=== PATIENT | male | born 1990 | race Caucasian/White ===

== ENCOUNTER 2020-03-18 21:24 | Emergency (ER) | payer OTHER ==
[2020-03-18] MEDS ORDERED: KETOROLAC 15 MG/ML 1 ML VIAL IM STA (21:42)
--- NOTE | 2020-03-18 21:44 | ED ---
General Adult HPI - General Chief complaint: Back Pain/Injury Stated complaint: Back Pain Time Seen by Provider: 03/18/20 21:32 Source: patient, RN notes reviewed Mode of arrival: ambulatory Limitations: no limitations - History of Present Illness Initial comments: 29-year-old male presents to the emergency room for a chief complaint of upper back pain. Patient reports that he was moving a large bench seat out of a 15 passenger van. States that a few minutes later he was walking across the yard carrying hamburgers when he started to have sudden mid back pain. States it hurts to straighten his spine. States it hurts to lift his right shoulder. States twisting to the left increases the pain accidentally. Denies bladder or bowel changes. Denies numbness or tingling of upper or lower extremities. Denies fevers or chills.Patient has no other complaints at this time including shortness of breath, chest pain, abdominal pain, nausea or vomiting, headache, or visual changes. - Related Data Allergies Allergy/AdvReac Type Severity Reaction Status Date / Time No Known Allergies Allergy Verified 03/18/20 21:30 Review of Systems ROS Statement: Those systems with pertinent positive or pertinent negative responses have been documented in the HPI. ROS Other: All systems not noted in ROS Statement are negative. Past Medical History Past Medical History: No Reported History History of Any Multi-Drug Resistant Organisms: None Reported Past Surgical History: No Surgical Hx Reported Past Psychological History: No Psychological Hx Reported Smoking Status: Never smoker Past Alcohol Use History: None Reported Past Drug Use History: None Reported General Exam Limitations: no limitations General appearance: alert, in no apparent distress Head exam: Present: atraumatic, normocephalic, normal inspection Eye exam: Present: normal appearance, PERRL, EOMI. Absent: scleral icterus, conjunctival injection, periorbital swelling ENT exam: Present: normal exam, mucous membranes moist Neck exam: Present: normal inspection, full ROM. Absent: tenderness, meningismus, lymphadenopathy Respiratory exam: Present: normal lung sounds bilaterally. Absent: respiratory distress, wheezes, rales, rhonchi, stridor Cardiovascular Exam: Present: regular rate, normal rhythm, normal heart sounds. Absent: systolic murmur, diastolic murmur, rubs, gallop, clicks GI/Abdominal exam: Present: soft, normal bowel sounds. Absent: distended, tenderness, guarding, rebound, rigid Extremities exam: Present: other (strength 5 out of 5 and sensation intact in upper and lower extremities bilaterally. radial pulses 2+ bilat) Back exam: Present: paraspinal tenderness (thoracic paraspinal tenderness.), vertebral tenderness (thoracic spine tenderness along the T8-T10 area). Absent: CVA tenderness (R), CVA tenderness (L) Course Vital Signs 03/18/20 21:25 Temperature 99.5 F Pulse Rate 83 Respiratory 16 Rate Blood Pressure 143/97 O2 Sat by Pulse 97 Oximetry Medical Decision Making - Medical Decision Making pain is reproducible, most notable nature. X-rays are negative. Patient was treated with anti-inflammatories and pain medication. He will follow up with primary care. Will return for any worsening symptoms. Disposition Clinical Impression: Mechanical back pain Disposition: HOME SELF-CARE Condition: Good Instructions (If sedation given, give patient instructions): Back Pain (ED) Additional Instructions: please take Motrin and Tylenol alternating every 3 hours for pain. Take Tylenol 3 if pain is severe but do not drive or operate machinery while taking this. Do not take more than 1000 mg of Tylenol in 6 hours. Follow-up with primary care in 1-2 days. Return to the emergency room for any worsening symptoms. Is patient prescribed a controlled substance at d/c from ED?: No Referrals: Pema Mcconnell MD [REFERRING] - 1-2 days Time of Disposition: 22:34
--- NOTE | 2020-03-18 21:59 | XR ---
EXAMINATION TYPE: XR chest 2V DATE OF EXAM: 03/18/2020 COMPARISON: NONE HISTORY: Chest pain TECHNIQUE: 2 views FINDINGS: Heart and mediastinum are normal. Lungs are clear. Diaphragm is normal. Bony thorax appears normal. IMPRESSION: Normal chest.
--- NOTE | 2020-03-18 22:04 | XR ---
EXAMINATION TYPE: XR thoracic spine complete DATE OF EXAM: 03/18/2020 COMPARISON: NONE HISTORY: Pain TECHNIQUE: 3 views FINDINGS: There is a mid thoracic dextroscoliosis. There is no thoracic paraspinal mass. I see no com pression fracture. Posterior elements are intact. There is no evidence of focal bone destruction. IMPRESSION: Mild dextroscoliosis. No fracture seen.
[2020-03-18] MEDS ORDERED: ACET/COD 300 MG/30 MG STARTER PACK 6 TAB BTL PO STA (22:34)
[2020-03-18 22:50] VITALS: BP 131/85; PULSE 76; RESP 18; TEMP 98.8
== END 2020-03-18 22:52 | disposition home or self-care (01) ==
LOC: EC 21:24
DX: M54.6 Pain in thoracic spine (principal); M25.511 Pain in right shoulder
CPT/HCPCS: 72072; 71046; 96372; 99283; J1885

== ENCOUNTER 2022-06-11 00:14 | Emergency (ER) | payer OTHER ==
[2022-06-11 00:49] VITALS: BP 158/94; PULSE 86; RESP 16; TEMP 100.8
[2022-06-11] MEDS ORDERED: DEXAMETHASONE SOD PHOSPHATE 10 MG/ML 1 ML VIAL IM STA (00:56)
[2022-06-11] MEDS ORDERED: PROCHLORPERAZINE 10 MG TAB PO STA (00:56)
[2022-06-11] MEDS ORDERED: IBUPROFEN 800 MG TAB PO STA (00:56)
[2022-06-11] MEDS ORDERED: ACETAMINOPHEN TAB 500 MG TAB PO STA (00:56)
--- NOTE | 2022-06-11 00:57 | ED ---
Dizziness HPI - General Chief Complaint: Upper Respiratory Infection Stated Complaint: headache,sob Time Seen by Provider: 06/11/22 00:21 Source: patient, RN notes reviewed, old records reviewed Mode of arrival: ambulatory Limitations: no limitations - History of Present Illness Initial Comments: This is a 32-year-old male to the emergency department for evaluation. Patient is expecting a coronavirus test. Patient states he been exposed to covert is having covert in the past body aches pains cough or congestion no shortness of breath no specific complaints. Patient is no travel history no chest pain no significant shortness of breath patient has no medical history takes no medications MD Complaint: dizziness, lightheadedness, other (GARCIA, sob) Timing: gradual onset Description: off-balance, nausea, near-syncope History of Same: No History of Trauma: No Severity: moderate Improves With: remaining still Worsens With: nothing Associated Symptoms: denies other symptoms - Related Data Allergies Allergy/AdvReac Type Severity Reaction Status Date / Time No Known Allergies Allergy Verified 03/18/20 21:30 Review of Systems ROS Statement: Those systems with pertinent positive or pertinent negative responses have been documented in the HPI. ROS Other: All systems not noted in ROS Statement are negative. Past Medical History Past Medical History: No Reported History History of Any Multi-Drug Resistant Organisms: None Reported Past Surgical History: No Surgical Hx Reported Past Psychological History: No Psychological Hx Reported Smoking Status: Never smoker Past Alcohol Use History: None Reported Past Drug Use History: None Reported General Exam Limitations: no limitations General appearance: alert, in no apparent distress, anxious Head exam: Present: atraumatic, normocephalic, normal inspection Eye exam: Present: normal appearance, PERRL, EOMI. Absent: scleral icterus, conjunctival injection, periorbital swelling ENT exam: Present: normal exam, mucous membranes moist Neck exam: Present: normal inspection. Absent: tenderness, meningismus, lymphadenopathy Respiratory exam: Present: normal lung sounds bilaterally. Absent: respiratory distress, wheezes, rales, rhonchi, stridor Cardiovascular Exam: Present: regular rate, normal rhythm, normal heart sounds. Absent: systolic murmur, diastolic murmur, rubs, gallop, clicks GI/Abdominal exam: Present: soft, normal bowel sounds. Absent: distended, tenderness, guarding, rebound, rigid Extremities exam: Present: normal inspection, full ROM, normal capillary refill. Absent: tenderness, pedal edema, joint swelling, calf tenderness Back exam: Present: normal inspection Neurological exam: Present: alert, oriented X3, CN II-XII intact Psychiatric exam: Present: normal affect, normal mood Skin exam: Present: warm, dry, intact, normal color. Absent: rash Course Vital Signs 06/11/22 00:46 Temperature 100.8 F H Pulse Rate 86 Respiratory 16 Rate Blood Pressure 158/94 O2 Sat by Pulse 100 Oximetry - Reevaluation(s) Reevaluation #1: 06/11/22 Medical record is reviewed Patient symptoms are improved here in the ER Patient informed results and questions answered Medical Decision Making - Medical Decision Making 32 male to the emergency department for fever and evaluation. Patient has no acute cause found found for symptoms, breast for infection patient can be discharged home - Lab Data Lab Results 06/11/22 Range/Units 00:46 Coronavirus (PCR) Not Detected (Not Detectd) Disposition Clinical Impression: Acute upper respiratory infection, Fever, Viral infection Disposition: HOME SELF-CARE Condition: Good Instructions (If sedation given, give patient instructions): Fever in Adults (ED), Upper Respiratory Infection (ED) Is patient prescribed a controlled substance at d/c from ED?: No Referrals: None,Stated [Primary Care Provider] - 1-2 days Time of Disposition: 02:00
== END 2022-06-11 02:20 | disposition home or self-care (01) ==
LOC: EC 00:14
DX: J06.9 Acute upper respiratory infection, unspecified (principal); Z20.822 Contact with and (suspected) exposure to COVID-19
CPT/HCPCS: 87635; 99284; 96372; S0183; J1100

== ENCOUNTER 2024-01-14 16:14 | Emergency (ER) | payer OTHER ==
[2024-01-14 16:32] VITALS: TEMP 98.9
--- NOTE | 2024-01-14 16:50 | ED ---
Extremity Problem HPI - General Chief complaint: Extremity Problem,Nontraumatic Stated complaint: sent by kasia HUBER blood clot Time Seen by Provider: 01/14/24 16:31 Source: patient, RN notes reviewed Mode of arrival: ambulatory Limitations: no limitations - History of Present Illness Initial comments: This is a 33-year-old male with no significant past medical history presents the emergency department chief complaint of pain of his right lower calf over the past few days. Patient states that he was seen at urgent care this afternoon where they instructed him to report to the emergency department for further evaluation and to rule out a blood clot. Patient denies history of DVT, PE. Is not on blood thinners. He is denying dyspnea, heart palpitations, headaches. Denies recent prolonged travel or recent surgeries. Patient has mild pain of the right calf with ambulation. - Related Data Allergies Allergy/AdvReac Type Severity Reaction Status Date / Time No Known Allergies Allergy Verified 01/14/24 16:32 Review of Systems ROS Statement: Those systems with pertinent positive or pertinent negative responses have been documented in the HPI. ROS Other: All systems not noted in ROS Statement are negative. Past Medical History Past Medical History: No Reported History History of Any Multi-Drug Resistant Organisms: None Reported Past Surgical History: No Surgical Hx Reported Past Psychological History: No Psychological Hx Reported Smoking Status: Never smoker Past Alcohol Use History: None Reported Past Drug Use History: None Reported General Exam Limitations: no limitations General appearance: alert, in no apparent distress Head exam: Present: atraumatic, normocephalic, normal inspection Eye exam: Present: normal appearance, PERRL, EOMI. Absent: scleral icterus, conjunctival injection, periorbital swelling ENT exam: Present: normal exam, mucous membranes moist Neck exam: Present: normal inspection. Absent: tenderness, meningismus, lymphadenopathy Respiratory exam: Present: normal lung sounds bilaterally. Absent: respiratory distress, wheezes, rales, rhonchi, stridor Cardiovascular Exam: Present: regular rate, normal rhythm, normal heart sounds. Absent: systolic murmur, diastolic murmur, rubs, gallop, clicks GI/Abdominal exam: Present: soft, normal bowel sounds. Absent: distended, tenderness, guarding, rebound, rigid Right Lower Leg exam: Present: tenderness, swelling (Exterior). Absent: laceration, ecchymosis, deformity, crepitus, erythema, palpable cord, Homans' sign Neurovascular tendon exam: Present: no vascular compromise. Absent: pulse deficit Gait: observed and normal. negative: unable to bear weight Back exam: Present: normal inspection Neurological exam: Present: alert, oriented X3, CN II-XII intact Skin exam: Present: warm, dry, intact, normal color. Absent: rash Course Vital Signs 01/14/24 01/14/24 16:29 18:15 Temperature 98.9 F Pulse Rate 86 74 Respiratory 17 18 Rate Blood Pressure 150/98 130/84 O2 Sat by Pulse 96 98 Oximetry Medical Decision Making - Medical Decision Making Was pt. sent in by a medical professional or institution (, PA, SERVICE OBSERVER, urgent care, hospital, or correction...) When possible be specific @ -Patient was referred by urgent care report to the emergency department to rule out a DVT of the right lower extremity. Did you speak to anyone other than the patient for history (EMS, parent, family, police, friend...)? What history was obtained from this source @ -No Did you review nursing and triage notes (agree or disagree)? Why? @ -I reviewed and agree with nursing and triage notes Were old charts reviewed (outside hosp., previous admission, EMS record, old EKG, old radiological studies, urgent care reports/EKG's, correction records)? Report findings @ -No old charts were reviewed Differential Diagnosis (chest pain, altered mental status, abdominal pain women, abdominal pain men, vaginal bleeding, weakness, fever, dyspnea, syncope, headache, dizziness, GI bleed, back pain, seizure, CVA, palpatations, mental health, musculoskeletal)? @ -Deep vein thrombosis, superficial thrombosis, muscle strain, edema, this list is not all inclusive. EKG interpreted by me (3pts min.). @ -None X-rays interpreted by me (1pt min.). @ -None done CT interpreted by me (1pt min.). @ -None done U/S interpreted by me (1pt. min.). @ -duplex ultrasound of the right lower extremity no evidence for DVT. What testing was considered but not performed or refused? (CT, X-rays, U/S, labs)? Why? @ -None What meds were considered but not given or refused? Why? @ -None Did you discuss the management of the patient with other professionals (professionals i.e. , PA, SERVICE OBSERVER, lab, RT, psych nurse, social media assistant, hot dip plating supervisor, teacher, community resource officer, rn field case manager)? Give summary @ -No Was smoking cessation discussed for >3mins.? @ -No Was critical care preformed (if so, how long)? @ -No Were there social determinants of health that impacted care today? How? (Homelessness, low income, unemployed, alcoholism, drug addiction, transportation, low edu. Level, literacy, decrease access to med. care, halfway, rehab)? @ -No Was there de-escalation of care discussed even if they declined (Discuss DNR or withdrawal of care, Hospice)? DNR status @ -No What co-morbidities impacted this encounter? (DM, HTN, Smoking, COPD, CAD, Cancer, CVA, ARF, Chemo, Hep., AIDS, mental health diagnosis, sleep apnea, morbid obesity)? @ -None Was patient admitted / discharged? Hospital course, mention meds given and route, prescriptions, significant lab abnormalities, going to OR and other pertinent info. @ -Discharged. 33-year-old male with right lower extremity edema and pain. On examination patient has a negative Homans' sign. There is no erythema of the right lower extremity. Patient is able to bear weight solely on the right lower extremity. He is evaluated via duplex ultrasound which is negative. Recommend the patient use compression stockings for the next few days in addition to Tylenol Motrin at home as needed for symptomatic relief. She is not expressing symptoms concerning for PE such as shortness of breath, dyspnea on exertion, heart palpitations therefore laboratory studies were deferred. All questions answered at bedside and strict return parameters discussed with the patient he is verbalized understanding. Case discussed with Dr. Nix. Undiagnosed new problem with uncertain prognosis? @ -No Drug Therapy requiring intensive monitoring for toxicity (Heparin, Nitro, Insulin, Cardizem)? @ -No Were any procedures done? @ -No Diagnosis/symptom? @ -Right calf pain, muscle strain Acute, or Chronic, or Acute on Chronic? @ -acute Uncomplicated (without systemic symptoms) or Complicated (systemic symptoms)? @ -Uncomplicated Side effects of treatment? @ -No Exacerbation, Progression, or Severe Exacerbation? @ -No Poses a threat to life or bodily function? How? (Chest pain, [place], [place], pneumonia, PE, COPD, DKA, ARF, appy, cholecystitis, CVA, Diverticulitis, Homicidal, Suicidal, threat to staff... and all critical care pts) @ -No Disposition Clinical Impression: Pain of right calf, Right leg swelling Disposition: HOME SELF-CARE Condition: Good Instructions (If sedation given, give patient instructions): Muscle Strain (ED) Additional Instructions: Return to the emergency department if symptoms worsen or not improve. Recommend that you use compression stockings while ambulating over the next week. Take Tylenol Motrin at home as needed. Is patient prescribed a controlled substance at d/c from ED?: No Referrals: Sarmad Henriquez DO [Primary Care Provider] - 1-2 days Time of Disposition: 17:46
--- NOTE | 2024-01-14 17:35 | US ---
EXAMINATION TYPE: US venous doppler duplex LE RT DATE OF EXAM: 01/14/2024 4:59 PM COMPARISON: NONE CLINICAL INDICATION: Male, 33 years old with history of leg pain; Rt post knee pain SIDE PERFORMED: Right TECHNIQUE: The lower extremity deep venous system is examined utilizing real time linear array sonog gianni with graded compression, doppler sonography and color-flow sonography. Packing Machine Operator notes: The exam limited by body habitus VESSELS IMAGED: Common Femoral Vein Deep Femoral Vein Greater Saphenous Vein * Femoral Vein Popliteal Vein Small Saphenous Vein * Proximal Calf Veins Posterior tibial veins (* superficial vessels) Right Leg: Negative for DVT IMPRESSION: Limitations due to patient body habitus. No DVT visualized within the right lower extremi ty.
[2024-01-14 18:17] VITALS: BP 130/84; PULSE 74; RESP 18
== END 2024-01-14 18:16 | disposition home or self-care (01) ==
LOC: EC 16:14
DX: M79.661 Pain in right lower leg (principal)
CPT/HCPCS: 99283

== ENCOUNTER 2024-02-01 19:58 | Emergency (ER) | payer OTHER ==
[2024-02-01 20:19] VITALS: RESP 18
--- NOTE | 2024-02-01 22:30 | ED ---
Back Pain HPI - General Chief Complaint: Back Pain/Injury Stated Complaint: back pain Time Seen by Provider: 02/01/24 22:28 Source: patient, RN notes reviewed Limitations: no limitations - History of Present Illness Initial Comments: 33-year-old male presented to the ER with a chief complaint of lower back pain. 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 He denies any known injuries or traumas. He denies any bending or twisting out of the norm. He reports the pain has been increasing throughout the week. He does report pain is worse with sitting, standing and movement. He does report laying flat improves pain. He denies any saddle paresthesias, bowel or bladder incontinence, fevers or radiation of pain. He denies any urinary complaints, h istory of kidney stones, chills or abdominal pain. - Related Data Previous Rx's Medication Instructions Recorded Lidocaine 5% Patch [Lidoderm] 1 patch TOPICAL DAILY #30 patch 02/01/24 predniSONE 50 mg PO DAILY #5 tab 02/01/24 Allergies Allergy/AdvReac Type Severity Reaction Status Date / Time No Known Allergies Allergy Verified 02/01/24 20:19 Review of Systems ROS Statement: Those systems with pertinent positive or pertinent negative responses have been documented in the HPI. ROS Other: All systems not noted in ROS Statement are negative. Past Medical History Past Medical History: No Reported History History of Any Multi-Drug Resistant Organisms: None Reported Past Surgical History: No Surgical Hx Reported Past Psychological History: No Psychological Hx Reported Smoking Status: Never smoker Past Alcohol Use History: None Reported Past Drug Use History: None Reported General Exam Limitations: no limitations General appearance: alert, in no apparent distress Respiratory exam: Present: normal lung sounds bilaterally. Absent: respiratory distress, wheezes, rales, rhonchi, stridor Cardiovascular Exam: Present: regular rate, normal rhythm, normal heart sounds. Absent: systolic murmur, diastolic murmur, rubs, gallop, clicks GI/Abdominal exam: Present: soft, tenderness (Right-sided), normal bowel sounds Extremities exam: Present: normal inspection, full ROM, normal capillary refill. Absent: tenderness, pedal edema, joint swelling, calf tenderness Back exam: Present: normal inspection, CVA tenderness (R), other (Positive left straight leg raise) Skin exam: Present: warm, dry, intact, normal color. Absent: rash Course Vital Signs 02/01/24 02/02/24 20:11 00:01 Temperature 98.3 F 97.9 F Pulse Rate 90 69 Respiratory 18 18 Rate Blood Pressure 179/94 155/86 O2 Sat by Pulse 97 96 Oximetry Medical Decision Making - Medical Decision Making Was pt. sent in by a medical professional or institution (, DEB, [employer] BACK TENDER, urgent care, hospital, or jail...) When possible be specific @ -No Did you speak to anyone other than the patient for history (EMS, parent, family, police, friend...)? What history was obtained from this source @ -No Did you review nursing and triage notes (agree or disagree)? Why? @ -I reviewed and agree with nursing and triage notes Were old charts reviewed (outside hosp., previous admission, EMS record, old EKG, old radiological studies, urgent care reports/EKG's, jail records)? Report findings @ -No old charts were reviewed Differential Diagnosis (chest pain, altered mental status, abdominal pain women, abdominal pain men, vaginal bleeding, weakness, fever, dyspnea, syncope, headache, dizziness, GI bleed, back pain, seizure, CVA, palpatations, mental health, musculoskeletal)? @ -Differential Back Pain:Strain, zoster, cauda equina syndrome, epidural abscess, vertebral osteomyelitis, discitis, fracture, subluxation, disc herniation, DJD, spinal stenosis, dissection, AAA, pancreatitis, peptic ulcer disease, pyelonephritis, kidney stone, this is not meant to be an all-inclusive list. EKG interpreted by me (3pts min.). @ -None X-rays interpreted by me (1pt min.). @ -Lumbar spine x-rays interpreted by me negative for acute process. CT interpreted by me (1pt min.). @ -None done U/S interpreted by me (1pt. min.). @ -None done What testing was considered but not performed or refused? (CT, X-rays, U/S, labs)? Why? @ -None What meds were considered but not given or refused? Why? @ -None Did you discuss the management of the patient with other professionals (professionals i.e. , DEB, [employer] TENDER, lab, RT, psych nurse, foster care social worker, racecourse barrier attendant, teacher, surface to air weapons officer, corrections caseworker)? Give summary @ -No Was smoking cessation discussed for >3mins.? @ -No Was critical care preformed (if so, how long)? @ -No Were there social determinants of health that impacted care today? How? (Homelessness, low income, unemployed, alcoholism, drug addiction, transportation, low edu. Level, literacy, decrease access to med. care, [facility], rehab)? @ -No Was there de-escalation of care discussed even if they declined (Discuss DNR or withdrawal of care, Hospice)? DNR status @ -No What co-morbidities impacted this encounter? (DM, HTN, Smoking, COPD, CAD, Cancer, CVA, ARF, Chemo, Hep., AIDS, mental health diagnosis, sleep apnea, morbid obesity)? @ -None Was patient admitted / discharged? Hospital course, mention meds given and route, prescriptions, significant lab abnormalities, going to OR and other pertinent info. @ -Discharge. 33-year-old male presenting to the ER with a chief complaint of back pain. History and physical exam completed. Vitals stable. Patient in no signs of acute distress and nontoxic-appearing. No red flag back pain symptoms indicative of cauda equina syndrome. Tenderness to palpation of right lumbar spine. Positive right CVA tenderness. Mild right-sided abdominal tenderness no rebound or guarding. Normal bowel sounds. X-rays obtained negative for acute process. Urinalysis obtained to rule out nephrolithiasis. UA unremarkable. He received IM Toradol for pain control. Upon reevaluation, patient resting co mfortably in exam room in no signs of acute distress. Pain believed to be musculoskeletal in nature. Prednisone and lidocaine patches prescribed. Lidocaine patch placed in the ER prior to discharge. Patient stable for discharge at this time. Return parameters discussed. Patient discharged in stable condition. Patient verbally expressed understanding and agreement care plan. Case discussed with ED attending, Dr. Currie. Undiagnosed new problem with uncertain prognosis? @ -No Drug Therapy requiring intensive monitoring for toxicity (Heparin, Nitro, Insulin, Cardizem)? @ -No Were any procedures done? @ -No Diagnosis/symptom? @ -Musculoskeletal pain/ back pain Acute, or Chronic, or Acute on Chronic? @ -Acute Uncomplicated (without systemic symptoms) or Complicated (systemic symptoms)? @ -Uncomplicated Side effects of treatment? @ -No Exacerbation, Progression, or Severe Exacerbation? @ -No Poses a threat to life or bodily function? How? (Chest pain, [place], [place], pneumonia, PE, COPD, DKA, ARF, appy, cholecystitis, CVA, Diverticulitis, Homicidal, Suicidal, threat to staff... and all critical care pts) @ -No - Lab Data Lab Results 02/01/24 Range/Units 23:15 Urine Color Colorless Urine Appearance Clear (Clear) Urine pH 6.5 (5.0-8.0) Ur Specific [place] 1.010 (1.001-1.035) Urine Protein Negative (Negative) Urine Glucose (UA) Negative (Negative) Urine Ketones Negative (Negative) Urine Blood Negative (Negative) Urine Nitrite Negative (Negative) Urine Bilirubin Negative (Negative) Urine Urobilinogen <2.0 (<2.0) mg/dL Ur Leukocyte Esterase Negative (Negative) - Radiology Data Radiology results: report reviewed, image reviewed Disposition Clinical Impression: Back pain, Musculoskeletal pain Disposition: HOME SELF-CARE Condition: Stable Instructions (If sedation given, give patient instructions): Acute Low Back Pain (ED) Additional Instructions: Please follow-up with PCP. Return to the ER for new or worsening concerns. Prescriptions: Lidocaine 5% Patch [Lidoderm] 1 patch TOPICAL DAILY #30 patch predniSONE 50 mg PO DAILY #5 tab Is patient prescribed a controlled substance at d/c from ED?: No Referrals: Sarmad Henriquez DO [Primary Care Provider] - 1-2 days Time of Disposition: 23:42
--- NOTE | 2024-02-01 22:52 | XR ---
EXAMINATION TYPE: XR lumbar spine 2 or 3V DATE OF EXAM: 02/01/2024 CLINICAL HISTORY: Low back pain since Tuesday TECHNIQUE: Frontal and lateral images of the lumbar spine are obtained. COMPARISON: None FINDINGS: There are 5 lumbar type vertebral bodies identified assuming hypoplastic bilateral T12 rib s. The lumbar spine shows minimal convex scoliosis centered at L2 level. There is slight grade 1 ret rolisthesis L3 on L4. Vertebral body heights and disk space heights are within normal limits. Mild mu ltilevel anterior spurring. Overlying soft tissue is unremarkable. IMPRESSION: As above.
[2024-02-01] MEDS: KETOROLAC 15 MG/ML 1 ML VIAL IM STA (22:53)
[2024-02-01 23:26] LABS: Appearance,Urine Clear (Clear); Bilirubin,Urine Negative (Negative); Blood,Urine Negative (Negative); Color,Urine Colorless; Glucose,Urine (UA) Negative (Negative); Ketones,Urine Negative (Negative); Leukocyte Esterase,Urine Negative (Negative); Nitrite,Urine Negative (Negative); PH, Urine 6.5 (5.0-8.0); Protein,Urine Negative (Negative); Urobilinogen,Urine <2.0 mg/dL (<2.0)
[2024-02-01] MEDS: LIDOCAINE 4% PATCH TOPICAL ONE (23:53)
[2024-02-02 00:12] VITALS: BP 155/86; PULSE 69; TEMP 97.9
== END 2024-02-02 00:17 | disposition home or self-care (01) ==
LOC: EC 19:58
DX: M54.50 Low back pain, unspecified (principal)
CPT/HCPCS: 81003; 72100; 99284; 96372; J1885